=== PATIENT | male | born 2000 | race Caucasian/White ===

== ENCOUNTER 2025-03-29 11:34 | Emergency (ER) | payer OTHER, SELFPAY ==
--- OUTSIDE RECORDS SUMMARY | 2025-03-29 11:43 | XMS_ITS | Clinical Summary ---
Author Organization [facility] Address [address] [place] [address] Care Team Providers Care Suppository Molding Machine Operator Name Role Phone Unknown, Provider Primary Care Provider Rand Story-MEDICAL INSURANCE CLAIMS PROCESSOR Unavailable Source Comments [facility] [employer],non-owned Affiliates and Associated Physician Practices is amultiple site organization consisting of ambulatory clinics and hospital sitesin [place], [place], [place] and [place]. This disclosure is being madepursuant to the Care Everywhere program and may not contain all information available regarding this patient. Last updated 18.[facility] [employer] Allergies No known active allergies Medications * This document contains information received from the source organization and may not represent a complete record from that organization. * Be aware that medications may not be up to date on this document. Alwaysverify current medications with the patient. ARIPiprazole (Abilify) 5 MG tabletIndicati ons:Bipolar Mood Disorder Take 1 (one) tablet by mouth once daily Reasons: Manic-Depressio n 30 tablet 5 6:03 PM CDT 03/07/20 25 Active escitalopram (Lexapro) 10 MG tabletIndicati ons:Generalize d Anxiety Disorder,Major Depressive Disorder Take 1.5 (one and one-half) tablets by mouth once daily Reasons: Generalized Anxiety Disorder, Major Depressive Disorder 45 tablet 5 6:03 PM CDT 03/07/20 25 Active escitalopram (Lexapro) 10 MG tabletIndicati ons:Generalize d Anxiety Disorder,Major Depressive Disorder Take 1 (one) tablet by mouth once daily Reasons: Generalized Anxiety Disorder, Major Depressive Disorder 30 tablet 2:22 PM CDT 02/01/20 25 025 Discontinued ARIPiprazole (Abilify) 5 MG tabletIndicati ons:Bipolar Mood Disorder Take 1 (one) tablet by mouth once daily Reasons: Manic-Depressio n 30 tablet 2:22 PM CDT 02/01/20 25 025 Discontinued Encounters * This document contains information received from the source organization and may not represent a complete record from that organization. Date Type Department Care Team Description 03/07/2025 Travel 01/31/2025 Travel from Last 3 Months Social History Tobacco Use Types Packs/Day Years Used Date Smoking Tobacco: Never Assessed Sex and Gender Information Value Date Recorded Sex Assigned at Not on file Legal Sex Male 12:14 PM CDT Gender Identity Not on file Sexual Orientation Not on file Last Filed Vital Signs Vital Sign Reading Time Taken Comments Blood Pressure 132/94 03/07/2025 5:37 PM CDT Pulse 60 03/07/2025 5:37 PM CDT Temperature - - Respiratory Rate - - Oxygen Saturation - - Inhaled Oxygen Concentration - - Weight 143.3 kg (316 lb) 03/07/2025 5:37 PM CDT Height 188 cm (6' 2) 03/07/2025 5:37 PM CDT Body Mass Index 40.57 03/07/2025 5:37 PM CDT Plan of Treatment Health Maintenance Due Date Last Done Comments HIV SCREENING 2013 HPV VACCINE (1 - Male 3-dose series) 2013 HEPATITIS C SCREENING 05/02/2016 DTAP/TDAP/TD VACCINES (1 - Tdap) 2017 HEPATITIS B VACCINE (1 of 3 - 19+ 3-dose series) 2017 COVID-19 VACCINE ( - 2023-2 5 season) 2024 DEPRESSION SCREENING 09/18/2024 INFLUENZA VACCINE (#1) 2025 ZOSTER VACCINE (1 of 2) 2048 HIB VACCINE Aged Out No longer eligi ble based on patient's age to complete this topic MENINGOCOCCAL (Group B) VACC INE SHARED DECISION-MAKING Aged Out No longer eligibl e based on patient's age to complete this topic MENINGOCOCCAL GROUPS A/C/Y/W VACCINE Aged Out No longer eligible b ased on patient's age to complete this topic PNEUMOCOCCAL VACCINE Aged Out No long er eligible based on patient's age to complete this topic Insurance MEDICAID - [place] Care Teams Suppository Molding Machine Operator Relationship Specialty Start Date End Date Unknown, Provider PCP - General 01/31/25 Rand Castillo, KALINA-MEDICAL INSURANCE CLAIMS PROCESSOR [id number] [place] [address] [place] [address] Nurse Practitioner 01/31/25
--- NOTE | 2025-03-29 11:46 | ED.URI ---
HPI - URI/Sore Throat General Chief Complaint: Upper Respiratory Infection Stated Complaint: hot flashes/ear pain/cold symptoms Time Seen by Provider: 03/29/25 11:57 24-year-old male presents with concern for 6 day history of sweats, hot flashes, cough, ear pain, runny nose, stuffy nose, general malaise. He reports he has been taking vitamin-C, cough drops and Sudafed. He reports exposure to strep throat. He works at the public. Source: patient and RN notes reviewed Mode of arrival: ambulatory Limitations: no limitations History of Present Illness MD elicited complaint: rhinorrhea Related Data Home Medications ?Medication ?Instructions ?Recorded ?Confirmed ?Last Taken ?Type aripiprazole 20 mg tablet (Abilify) 20 mg PO HS 03/29/25 03/29/25 Unknown History escitalopram oxalate 20 mg tablet 20 mg PO DAILY 03/29/25 03/29/25 Unknown History (Lexapro) Allergies Allergy/AdvReac Type Severity Reaction Status Date / Time Penicillins Allergy Mild Rash Verified 03/29/25 11:55 Review of Systems Review of Systems: CONSTITUTIONAL: Reports malaise, chills, sweats, tactile fever. EYES: Denies visual changes, redness, or discharge. ENT: Reports rhinorrhea, congestion, otalgia denies sore throat. CARDIOVASCULAR: Denies chest pain, palpitations, or edema. RESPIRATORY: Reports cough. Denies dyspnea. GASTROINTESTINAL: Denies abdominal pain, nausea, vomiting, diarrhea SKIN: Denies rash or itching. MUSCULOSKELETAL: Reports myalgia. NEUROLOGIC: Reports headache. All systems reviewed & are unremarkable except as noted in HPI and below PMFSH Comments At time of signature, agree with nursing past medical, surgical, social and family history. There is no relevant family history pertinent to the presenting complaint Exam Narrative: GENERAL: Nontoxic-appearing, well-nourished, and in no acute distress. HEAD: Normocephalic EYES: PERRLA, conjunctivae clear ENT: Nares clear. Mucous membranes moist. TM pearly montiel with dull light reflex bilaterally; no tragal tenderness. Oropharynx not erythematous without lesions. Tonsils not enlarged and without exudate, no drooling, no hoarseness, no trismus, uvula midline. NECK: Supple. No lymphadenopathy CHEST: Clear to auscultation, breath sounds equal. No wheezing, rhonchi, rales, or stridor. No respiratory distress, speaks in full sentences. HEART: Regular rate and rhythm. No murmur heard. SKIN: Warm, no rash. Diaphoretic NEURO: Alert and oriented x3. PSYCH: Normal mood and affect Course Course Emergency Course: Patient is aware of diagnosis, understands and agrees to treatment plan. Anticipatory guidance given. Patient agrees to follow-up as directed and is aware of reasons to seek care at the emergency department. Portions of this record may have been created with voice recognition software Level of Care: Express Care Visit Vital Signs Vital signs: Reviewed. MDM - URI/Sore Throat MDM Narrative Medical decision making narrative: Differential diagnosis considered: Price virus, strep pharyngitis, allergic rhinitis, upper respiratory tract infection, sinusitis, rhinosinusitis, nasopharyngitis. viral pharyngitis, otitis media, otitis externa, pneumonia, bronchitis, viral cough syndrome, viral syndrome, and influenza. Exam findings show no acute concerns or changes; patient is non-toxic appearing and is in no distress. Patient is appropriate for outpatient treatment and follow-up. Lab Data Attestation: I reviewed the patient's lab results. Critical Care Time Critical Care Time Critical Care Time: No Discharge Plan Discharge Clinical Impression: Lower respiratory tract infection Patient Disposition: Home Condition: Stable Instructions: Antibiotic Form, Acute Cough (ED) Additional Instructions: Your COVID and flu tests are negative, your rapid strep test is negative. Based on your symptoms we will treat you for lower respiratory tract infection with antibiotic steroid. Take both these medications until they are gone. Can continue to take [id number] medications as needed for your symptoms. 1) Please follow-up with your primary care doctor in the next 1-2 days. 2) If you have any worsening of symptoms or any other urgent concerns please go to the ER. 3) Please take medications as prescribed and continue taking your home medications as usual. 4) Please read and follow information included in discharge instructions. Patient Language: Georgian Prescriptions: New doxycycline monohydrate 100 mg tablet 100 mg PO BID 7 Days Qty: 14 0RF methylprednisolone [Medrol (Cody)] 4 mg tablets,dose pack See Rx Instructions .ROUTE .COMPLEX Qty: 21 0RF Rx Instructions: orally per package directions No Action escitalopram oxalate [Lexapro] 20 mg tablet 20 mg PO DAILY aripiprazole [Abilify] 20 mg tablet 20 mg PO HS Follow-up/Referrals: PHYSICIAN,TEST FIXTURE ASSEMBLER [Primary Care Provider] - Stand Alone Forms: Work/School Release IP Time of Disposition: 12:18
[2025-03-29 11:49] VITALS: BP 127/72; PULSE 98; RESP 18; TEMP 36.5; O2SAT 98
[2025-03-29 12:06] LABS: EDCOVIDSCREEN Negative (Negative); EDINFLUASCREEN Negative (Negative); EDINFLUBSCREEN Negative (Negative)
[2025-03-29 12:19] LABS: EDSTREPNEGPOS1 Negative (Negative)
== END 2025-03-29 12:20 | disposition home or self-care (01) ==
PROVIDERS: Emergency Provider Nurse Practitioner; Referring Provider Family Medicine
DX: J22 Unspecified acute lower respiratory infection (principal); Z79.899 Other long term (current) drug therapy; Z20.822 Contact with and (suspected) exposure to COVID-19
CPT/HCPCS: 87081; 87426; 87804; 87880; 99203; G0463